=== PATIENT | female | born 1975 | race Hispanic/Latino ===

== ENCOUNTER 2020-07-06 12:38 | Emergency (ER) | payer OTHER ==
[~2020-07-06] VITALS: Ht 167.6 cm; Wt 95.3 kg
[~2020-07-06 12:38] MED LIST: APRI PO; ATENOLOL50 MG PO; LISINOPRIL10 MG PO; NAPROXEN250 MG PO; VALTREX500 MG PO
--- NOTE | 2020-07-06 13:20 | Emergency Department Note ---
History of Present Illnes History of Present Illness Chief Complaint: Respiratory History of Present Illness This is a 45 year old female arrives to the ED with complaints of shor tness of breath and heavy menstrual bleeding. Patient states she is on Xarelto for numerous PEs.. Chief Complaint Comment Patient in from home via EMS as advised by her home health nurse for shortness of breath, lightheadedness and dizziness, as well as heavy menstrual cycle bleeding. Patient is breathing well in triage with oxygen saturations of 98% on 3L. Patient was recently disccharged from the hospital after spending 33 days there for covid 19 and 3 pulmonary embolisms. Patient has been on xarelto for treatment of the PEs. 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 Any updates have been documented here. Past Medical History Recent Fever: No Clinical Suspicion of Infectio: No New/Unexplained Change in Ment: No Other Medical History: covid 19 PEs x 3 in right lower lung Other Surgery: Cyst removed from forehead Right knee Scope Social History Smoking Cessation: Never Smoker Alcohol Use: Social Physically hurt or threatened: No Review of Systems Review of Systems Constitutional: Reports no symptoms EENTM: Reports no symptoms Cardiovascular: Reports no symptoms Respiratory: Reports as per HPI Gastrointestinal: Reports no symptoms Genitourinary: Reports no symptoms Musculoskeletal: Reports no symptoms Integumentary: Reports no symptoms Neurological: Reports no symptoms Psychological: Reports no symptoms Endocrine: Reports no symptoms Hematological/Lymphatic: Reports no symptoms Physical Exam Related Data Allergies: Coded Allergies: No Known Allergies (Unverified , 03/20/17) Triage Vital Signs Vital Signs Date Time Temp Pulse Resp B/P (MAP) Pulse Ox O2 Delivery O2 Flow Rate FiO2 07/06/20 12:48 98.7 119 26 104/67 92 Nasal Cannula 3.0 Physical Exam CONSTITUTIONAL Constitutional: Present well-developed, Present well-nourished, Present ill appearing HENT HENT: Present normocephalic, Present atraumatic, Present oropharynx clear/moist, Present nose normal HENT L/R: Present left ext ear normal, Present right ext ear normal EYES Eyes: Reports PERRL, Reports conjunctivae normal NECK Neck: Present ROM normal PULMONARY Pulmonary: Present effort normal, Present respiratory distress CARDIOVASCULAR Cardiovascular: Present regular rhythm, Present heart sounds normal, Present capillary refill normal, Present normal rate GASTROINTESTINAL Abdominal: Present soft, Present nontender, Present bowel sounds normal GENITOURINARY Genitourinary: Present exam deferred SKIN Skin: Present warm, Present dry MUSCULOSKELETAL Musculoskeletal: Present ROM normal NEUROLOGICAL Neurological: Present alert, Present oriented x 3, Present no gross motor or sensory deficits PSYCHOLOGICAL Psychological: Present mood/affect normal, Present judgement normal Results Laboratory Lab results reviewed: Yes Imaging Imaging results reviewed: Yes Assessment & Plan Medical Decision Making MDM 45-year-old female arrived to the ED with complaints of vaginal bleeding. Patient is on several total for multiple pulmonary emboli- Patient with active bleeding, required IV estrogen and COMM[employer]CIAL [employer]ER consult. Patient transferred to [facility] for high level of care. Assessment & Plan Final Impression: (1) Dysfunctional uterine bleeding Depart Disposition: TRANS TO OTHER [facility] Last Vital Signs Date Time Temp Pulse Resp B/P (MAP) Pulse Ox O2 Delivery O2 Flow Rate FiO2 07/06/20 12:48 98.7 119 26 104/67 92 Nasal Cannula 3.0 Home Meds Reported Medications Furosemide (LASIX) 20 Mg Tablet, 20 MG PO DAILY, #30 TAB 07/06/20 Loratadine (CLARITIN) 10 Mg Tablet 07/06/20 Desogestrel-Ethinyl Estradiol (APRI) 1 Each Tablet 07/06/20 Rivaroxaban (XARELTO) 20 Mg Tablet 07/06/20 Benzonatate (TESSALON PERLE) 100 Mg Capsule 07/06/20 Valacyclovir Hcl (VALTREX) 500 Mg Tab, 1000 MG PO BID, TAB 03/20/17 Naproxen (NAPROXEN) 250 Mg Tablet, 500 MG PO BID, TAB 03/20/17 Lisinopril (LISINOPRIL) 10 Mg Tablet, 10 MG PO DAILY, #30 TAB 03/20/17 Atenolol (ATENOLOL) 50 Mg Tablet, 100 MG PO DAILY 03/20/17 [Apri] No Conflict Check, 0.15 MG PO DAILY for CONTROL 03/20/17 TIMBO ANN, DO Jul 06, 2020 13:19
[2020-07-06 13:28] LABS: BASOPHILS # (AUTO) 0.1 (0.0-0.1); BASOPHILS % 0.9 % (0.0-1.0); EOSINOPHILS # (AUTO) 1.1 (0.0-0.4); EOSINOPHILS % 6.8 % (0.0-6.0); HEMATOCRIT 24.9 % (34.2-44.1); HEMOGLOBIN 7.5 g/dL (12.0-16.0); LYMPHOCYTES # (AUTO) 3.2 (1.0-3.2); LYMPHOCYTES % 19.7 % (18.0-39.1); MEAN CORPUSCULAR HEMOGLOBIN 26.7 pg (28-32); MEAN CORPUSCULAR HGB CONC 30.1 g/dL (31-35); MEAN CORPUSCULAR VOLUME 88.6 fL (81-99); MONOCYTES # (AUTO) 0.6 (0.2-0.8); NEUTROPHILS # (AUTO) 10.9 (2.1-6.9); NEUTROPHILS % 67.7 % (38.7-80.0); PLATELET COUNT 464 x10e3/uL (140-360); RED BLOOD COUNT 2.81 x10e6/uL (3.6-5.1); RED CELL DISTRIBUTION WIDTH 15.4 % (11.7-14.4)
--- NOTE | 2020-07-06 13:30 | Diagnostic Imaging Report ---
EXAM: CHEST SINGLE (PORTABLE) DATE: 07/06/2020 12:59 PM INDICATION: Shortness of breath COMPARISON: None FINDINGS: The trachea is midline. There are patchy airspace opacities present throughout the entirety of the left lung and within the right mid and lower lung zones. There is no evidence for pneumothorax or significant volume pleural effusion. The cardiomediastinal silhouette is within normal limits. No acute osseous abnormalities identified. IMPRESSION: Left greater than right-sided patchy airspace opacities identified suggestive of a multifocal/viral infectious process. Signed by: Dr. Narendra Sargent MD on 07/06/2020 1:27 PM
[2020-07-06 13:48] LABS: ALANINE AMINOTRANSFERASE 24 IU/L (0-55); ALBUMIN 3.1 g/dL (3.5-5.0); ALBUMIN/GLOBULIN RATIO 0.8 (0.8-2.0); ALKALINE PHOSPHATASE 63 IU/L (40-150); ANION GAP 14.5 mmol/L (8-16); BLOOD UREA NITROGEN 21 mg/dL (7-26); BUN/CREATININE RATIO 22 (6-25); CALCIUM 9.5 mg/dL (8.4-10.2); CARBON DIOXIDE 24 mmol/L (22-29); CHLORIDE 106 mmol/L (98-107); CREATINE KINASE 17 IU/L (29-168); CREATININE, SERUM 0.94 mg/dL (0.57-1.11); EST GLOMERULAR FILTRATION RATE > 60 ML/MIN (60-); GLUCOSE 99 mg/dL (74-118); POTASSIUM 3.5 mmol/L (3.5-5.1); SODIUM 141 mmol/L (136-145)
--- OUTSIDE RECORDS SUMMARY | 2020-07-06 14:16 | XMS REPORT | Encounter Summary ---
Author Organization Unknown Address [address] [place] [id number] Phone [phone] Care Team Providers Care Research Neuropsychologist Name Role Phone Dr. Adriano Reich 3 [phone] Stewart Santos MD 2 [phone] Mdaan Lamb MD 110 [phone] Reason for Visit Essential hypertension Instructions 1. Essential hypertension atenolol 100 mg-chlorthalidone 25 mg t ablet lisinopril 10 mg tablet CMP, serum or plasma lipid panel, serum 2. Hypokalemia 3. Immunization Adacel (Tdap Adolesn/Adult)(PF)2 Lf-(2 .5-5-3-5)-5 Lf/0.5 mL IM syringe 4. Body mass index 30+ - obesity body mass index: care instructions learning about healthy weight Discussion Note: None recorded. Plan of Care Reminders Provider Appointments Est Patient 03/08/2019 8:30AM Adriano Ocampo MD Lab CMP, Serum or Plasma 12/14/2018 [facility] Laboratory Lipid Panel, Serum 12/14/2018 [facility] Laboratory Referral None recorded. Procedures None recorded. Surgeries None recorded. Imaging None recorded. Medications Name Start Date Apri 0.15 mg-0.03 mg tablet Take 1 tablet every day by oral route as directed for 28 days. atenolol 100 mg-chlorthalidone 25 mg tab let TAKE ONE (1) TABLET(S) BY MOUTH ONCE A DAY. lisinopril 10 mg tablet TAKE ONE (1) TABLET(S) BY MOUTH DAILY. valacyclovir 500 mg tablet Take 1 tablet twice a day by oral route as needed. Medications Administered None recorded. Vitals Height Weight BMI Blood Pressure 5 ft 6 in 218 lbs 35.2 kg/m2 130/84 mm[Hg] Lab Results None recorded. Allergies Code Code System Name Reaction Severity Status Onset NKDA Problems Name Status Onset Date Source Essential Hypertension Active Procedures Date Name Performed by 11/23/1990 Orthopedic Surgery Information not avai lable 11/23/1989 Knee Surgery Information not avai lable Vaccine List Vaccine Type Tdap 0.5 mL Social History Smoking Status Never Smoker Past Encounters 12/14/2018 Essential Hypertension; Hypokalemia; Immunization; Body Mass Index 30+ - Obesity Adriano Ocampo MD: [id number] [place] [address], Ph. History of Present Illness Note:F/u on htn and hypokalemia. Pt d/c KCL 20 meq because she was having persistent leg cramps. Compliant with diet and exercise. No side effects with meds. BPs at home 120s/60s-80s. No new concerns. Review of Systems Comprehensive General Adult ROS Reported By: Patient Constitutional: Constitutional: no fever Eyes: Eyes: no vision change ENMT: Ears: no ear pain. Nose: no sinus problems. Mouth/Throat: no sore throat Cardiovascular: Cardiovascular: no chest thaddeus n, no palpitations, no lightheadedness Respiratory: Respiratory: no cough, no wh eezing, no shortness of breath Gastrointestinal: Gastrointestinal: no abdomin al pain, no nausea, no vomiting, no constipation, no diarrhea Musculoskeletal: Musculoskeletal: no muscle a ches, no back pain, no swelling in the extremities Integumentary: Skin: no rashes Neurologic: Neurologic: no loss of consc iousness, no headaches Psychiatric: Psych: no depression, no alc ohol abuse, no anxiety, no suicidal thoughts Endocrine: Endocrine: no fatigue Physical Exam General Adult Exam (male) Reported By: Patient Constitutional: General Appearance: healthy- appearing, obese. Level of Distress: NAD. Ambulation: ambulating normally Psychiatric: Insight: good judgement. Men jose Status: active and alert, normal mood, normal affect. Orientation: to time, to place, to person. Memory: recent memory normal, remote memory normal Eyes: Lids and Conjunctivae: non-i njected, no discharge ENMT: Lips, Teeth, and Gums: no mo uth or lip ulcers. Oropharynx: moist mucous membranes Neck: Neck: supple, trachea midlin e. Thyroid: no enlargement, non-tender Lungs: Auscultation: breath sounds normal Cardiovascular: Heart Auscultation: RRR, nor mal S1, normal S2, no murmurs. Neck vessels: no carotid bruits. Pulses including femoral / pedal: normal throughout Musculoskeletal:: Motor Strength and Tone: nor mal, normal tone. Joints, Bones, and Muscles: normal movement of all extremities. Extremities: edema, varicosities Neurologic: Gait and Station: normal gai t Skin: Inspection and palpation: no rash, no lesions
--- OUTSIDE RECORDS SUMMARY | 2020-07-06 14:16 | XMS REPORT | Continuity of Care Document ---
Author Author [facility] t Organization [facility] Address 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 Name Role Phone Asked, Pcp No PCP Unavailable Ludwig ANN Attphys Unavailable Zainab LOCKE, Alvin Hager Attphys Payers Payer Name Policy Type Policy Number Effective Date Expiration Date S lizzy AETNAAETNA PPO OPEN [id number] xxxxxxxxxx 2011 00:00:00 [place] [facility] Problems Condition Name Condition Details Condition Category Status Onset Date Resolution Date Last Treatment Date Treating Clinician Comments Source Anemia Anemia Problem Active 2020-07-04 00:00:00 [facility] Pulmonary embolism Pulmonary Embolism Problem Active 2020-07-04 00:00:0 0 [facility] Pneumonia Pneumonia Problem Active 2020-07-04 00:00:00 [facility] Disease caused by 2019 novel coronavirus Disease Cause d by 2019 Novel Coronavirus Problem Active 2020-07-04 00:00:00 [facility] Herpes labialis Herpes Labialis Problem Active 2019-12-07 00:00:00 [facility] Obesity Obesity Problem Active 2019-12-07 00:00:00 [facility] Prediabetes Prediabetes Problem Active 2019-12-07 00:00:00 [facility] Essential hypertension Essential Hypertension Problem Active [facility] Allergies, Adverse Reactions, Alerts This patient has no known allergies or adverse reactions. Family History Family Member Diagnosis Comments Start Date Stop Date Source Natural father Hyperlipidemia [place] [facility] Natural father Hypertension [place] [facility] Maternal grandmother Stomach cancer [place] [facility] Natural mother Cataracts [facility] Paternal grandmother Cancer [place] [facility] Social History Social Habit Start Date Stop Date Quantity Comments Source History SDOH Alcohol Std Drinks [place] [facility] History SDOH Alcohol Binge Aston Maxwell Sex Assigned At [facility] Alcohol intake 2019-12-06 00:00:00 2019-12-06 00:00:00 Lifetime non-drinker (finding) Aston Maxwell History SDOH Alcohol Frequency 2019-12-06 00:00:00 2019-12-06 00:00:0 0 1 Aston Maxwell Smoking Status Start Date Stop Date Source Never smoker Aston zapata Medications Ordered Medication Name Filled Medication Name Start Date Stop Da te Current Medication? Ordering Clinician Indication Dosage Frequency Signature (SIG) Comments Components Source ACYCLOVIR ORAL 2019-12-06 09:20:45 Yes 500 mg Take 500 mg by mouth as needed. Aston Maxwell APRI 0.15-0.03 mg per tablet 2019-12-06 00:00:00 Yes 1{tbl} QD Take 1 tablet by mouth daily. Aston Maxwell APRI 0.15-0.03 mg per tablet 2019-10-17 00:00:00 2019-12-06 00:0 0:00 No 1{tbl} QD Take 1 tablet by mouth daily. Aston Maxwell atenolol-chlorthalidone (TENORETIC) 100-25 mg per tablet 2019-10-04 00:00:00 Yes 1{tbl} QD Take 1 tablet by mouth daily. Aston Maxwell lisinopril (PRINIVIL) 10 mg tablet 2019-10-04 00:00:00 Yes 10mg QD Take 10 mg by mouth daily. Aston Maxwell Apri 0.15 mg-0.03 mg tablet Take 1 table t every day by oral route as directed for 28 days. Apri 0.15 mg-0.03 mg tablet Take 1 table t every day by oral route as directed for 28 days. No Apri 0.15 mg-0.03 mg tablet Take 1 tablet every day by oral route as directed for 28 days. [facility] atenolol 100 mg-chlorthalidone 25 mg tab let Take 1 tablet every day by oral route for 90 days. atenolol 100 mg-chlorthalidone 25 mg tab let Take 1 tablet every day by oral route for 90 days. No 1 Q1D atenolol 100 mg- chlorthalidone 25 mg tablet Take 1 tablet every day by oral route for 90 days. [facility] benzonatate 100 mg capsule Take 1 capsule twice a day by oral route for 8 days. benzonatate 100 mg capsule Take 1 capsule twice a day by oral route for 8 days. No 1capsule(s) BID benzonat ate 100 mg capsule Take 1 capsule twice a day by oral route for 8 days. [facility] Claritin 10 mg tablet Take 1 tablet every day by oral route. Claritin 10 mg tablet Take 1 tablet every day by oral route. No 1 Q1D Claritin 10 mg tablet Take 1 tablet every day by oral route. [facility] fluticasone propionate 50 mcg/actuation nasal spray,suspension [place] 1 spray twice a day by intranasal route as directed for 14 days. nasla congestion. fluticasone propionate 50 mcg/actuation nasal spray,suspension [place] 1 spray twice a day by intranasal route as directed for 14 days. nasla congestion. No 1spray(s) BID fluticasone pro pionate 50 mcg/actuation nasal spray,suspension [place] 1 spray twice a day by intranasal route as directed for 14 days. nasla congestion. [facility] furosemide 20 mg tablet Take 1 tablet every day by ora l route for 90 days. furosemide 20 mg tablet Take 1 tablet every day by oral route for 90 days. No 1 Q1D furosemide 20 m g tablet Take 1 tablet every day by oral route for 90 days. [facility] ice ipratropium 0.5 mg-albuterol 3 mg (2.5 m g base)/3 mL nebulization soln Inhale 3 mL 4 times a day by inhalation route for 5 days. ipratropium 0.5 mg-albuterol 3 mg (2.5 mg base)/3 mL nebulization soln Inhale 3 mL 4 times a day by inhalation route for 5 days. No 3mL QID ipratr opium 0.5 mg-albuterol 3 mg (2.5 mg base)/3 mL nebulization soln Inhale 3 mL 4 times a day by inhalation [facility] mg [facility] Take 1 tablet every day by ora l route for 90 days. lisinopril 10 mg tablet Take 1 tablet every day by oral route for 90 days. No 1 Q1D lisinopril 10 m g tablet Take 1 tablet every day by oral route for 90 days. [facility] ice Mucinex 600 mg tablet, extended release Take 1 tablet every 12 hours by oral route. Mucinex 600 mg tablet, extended release Take 1 tablet every 12 hours by oral route. No 1 Q12H Mucinex 600 mg tablet, extended release Take 1 tablet every 12 hours by oral route. [facility] scopolamine 1 mg over 3 days transdermal patch Apply 1 patch every 72 hours by transderm. route for 3 days. scopolamine 1 mg over 3 days transdermal patch Apply 1 patch every 72 hours by transderm. route for 3 days. No 1patch(es) scopolamine 1 mg over 3 days transdermal patch Apply 1 patch every 72 hours by transderm. route for 3 days. [facility] valacyclovir 500 mg tablet TAKE ONE (1) TABLET(S) BY MOUTH TWICE A DAY NEEDED. valacyclovir 500 mg tablet TAKE ONE (1) TABLET(S) BY MOUTH TWICE A DAY NEEDED. No valacyclovir 500 mg tablet TAKE ONE (1) TABLET(S) BY MOUTH TWICE A DAY NEEDED. [facility] Xarelto 20 mg tablet Take 1 tablet every day by oral r oute for 30 days. Xarelto 20 mg tablet Take 1 tablet every day by oral route for 30 days. No 1 Q1D Xarelto 20 mg tablet Take 1 tablet every day by oral route for 3 0 days. [facility] Immunizations Ordered Immunization Name Filled Immunization Name Date Status Comments Source Tdap Tdap Unknown Completed [facility] Vital Signs Vital Name Observation Time Observation Value Comments Source Height 2020-07-04 00:00:00 65 [in_i] [facility] BP Diastolic 2019-12-07 00:00:00 76 mm[Hg] [facility] Height 2019-12-07 00:00:00 65 [in_i] [facility] BMI (Body Mass Index) 2019-12-07 00:00:00 34.9 kg/m2 [facility] BP Systolic 2019-12-07 00:00:00 124 mm[Hg] [facility] Body Weight 2019-12-07 00:00:00 209.6 [lb_av] [facility] BP Diastolic 2019-03-23 00:00:00 76 mm[Hg] [facility] Height 2019-03-23 00:00:00 65 [in_i] [facility] BMI (Body Mass Index) 2019-03-23 00:00:00 35.6 kg/m2 [facility] BP Systolic 2019-03-23 00:00:00 104 mm[Hg] [facility] Body Weight 2019-03-23 00:00:00 214 [lb_av] [facility] BP Diastolic 2018-12-14 00:00:00 84 mm[Hg] [facility] Height 2018-12-14 00:00:00 66 [in_i] [facility] BMI (Body Mass Index) 2018-12-14 00:00:00 35.2 kg/m2 [facility] BP Systolic 2018-12-14 00:00:00 130 mm[Hg] [facility] Body Weight 2018-12-14 00:00:00 218 [lb_av] [facility] Systolic blood pressure 2019-12-06 09:04:00 114 mm[Hg] [facility] Diastolic blood pressure 2019-12-06 09:04:00 64 mm[Hg] [facility] Heart rate 2019-12-06 09:04:00 80 /min [facility] Body height 2019-12-06 09:04:00 167.6 cm [facility] Body weight 2019-12-06 09:04:00 93.895 kg [facility] BMI 2019-12-06 09:04:00 33.41 kg/m2 [place] [facility] Procedures Procedure Date / Time Performed Performing Clinician Sour e THINPREP TIS PAP REFLEX HPV MRNA E6/E7 2019-12-09 14:47:00 Madan Wiggins THINPREP TIS PAP REFLEX HPV MRNA E6/E7 2019-12-06 00:00:00 Madan Wiggins Orthopedic Surgery 1990-11-23 00:00:00 [facility] Knee Surgery 1989-11-23 00:00:00 [facility] Plan of Care Planned Activity Planned Date Details Comments Source Future Scheduled Test 2022-12-09 00:00:00 Screening for porter gnant neoplasm of cervix (procedure) [code = 415714107] Aston zapata Future Scheduled Test 2020-07-24 00:00:00 INFLUENZA VACCINE [code = INFLUENZA VACCINE] Aston Maxwell Future Appointment 2020-07-18 00:00:00 Emma Knight, [address]; [address], [place] [address] [facility] musa Instructions [facility] Encounters Start Date/Time End Date/Time Encounter Type Admission Type [facility] Care Department Encounter ID Source 2020-07-04 00:00:00 2020-07-04 00:00:00 Emma Knight CLEAT FEEDER : [address] [facility], [address], [place] [address], Ph. [facility] [id number] [facility] 2019-12-07 00:00:00 2019-12-07 00:00:00 Emma Knight, CLEAT FEEDER : [address] [place] [address], Ph. [facility] [id number] [facility] 2019-03-23 00:00:00 2019-03-23 00:00:00 Amadeo duran MD: [address] [place] [address], [place]. [facility] [id number] [facility] 2018-12-14 00:00:00 2018-12-14 00:00:00 Adriano sarmiento MD: [address] [place] [address], [place]. [facility] [id number] [facility] Results Test Description Test Time Test Comments Results Result Comments Source CHEST SINGLE (PORTABLE) 2020-07-06 13:25:00 [facility] [address] [place] [address] Patient Name: YARELY QUEEN MR #: [id number] : 1975 Age/Sex: 45/F Req #: [id number] Adm Physician: Ordered by: TIMBO ANN DO Report #: [id number] Location: ER Room/Bed: Procedure: [id number] DX/CHEST SINGLE (PORTABLE) Exam Date: Exam Time: REPORT STATUS: Signed EXAM: CHEST SINGLE (PORTABLE) DATE: 07/06/2020 12:59 PM INDICATION: Shortness of breath COMPARISON: None FINDINGS: The trachea is midline. There are patchy airspace opacities present throughout the entirety of the left lung and within the rig ht mid and lower lung zones. There is no evidence for pneumothorax or significant volume pleural effusion. The cardiomediastinal silhouette is within normal limits. No acute osseous abnormalities identified. IMPRESSION: Left greater than right-sided patchy airspace opacities identified suggestive of a multifocal/viral infectious process. Signed by: Dr. Narendra Sargent MD on 07/06/2020 1:27 PM Dictated By: NARENDRA SARGENT MD 1327 Transcribed By: EMILY on 07/06/20 1327 COPY TO: TIMBO ANN DO SCR MAMM BILATERAL AISHA CAD DIGITAL 2019-12-17 10:31:57 - SCR MAMM BILATERAL AISHA CAD DIGITALBILATERAL DIGITAL SCREENING MAMMOGRAM 3D/2D WITH CAD: 12/15/2019CLINICAL: Asymptomatic. Digital breast tomosynthesis was performed in addition to routine CC and MLO views. Current mammographic images were evaluated by either a Bulb M-Vu or a [facility] ImageChecker CAD (computer aided detection system). Comparison is made to exams dated 12/03/2018 mammogram, 12/02 mammogram, and 11/06/2016 mammogram - [facility]. There are scattered fibroglandular tissues in both breasts. No suspicious mass, architectural distortion, malignant type calcification, or lymph node abnormality detected. Breast architecture is stable compared to prior exams.IMPRESSION: NEGATIVEThere is no mammographic evidence of malignancy. Resume annual screening mammography in one year. Shanae diaz/sangeeta:12/17/2019 10:31:57 Tankage Grinder: Deanna KAISER, [facility] sent: BIRADS 1-2 Normal Mammogram BI-RADS: 1 Negative THINPREP TIS PAP REFLEX HPV mRNA E6/E7 2019-12-09 14:47:00 Test Item Clinical information (test code = 45170-8) None given Date of last menstrual period (test code = 8665-2) NONE GIVEN Prev. pap: (test code = 81611-2) NONE GIVEN Prev. bx: (test code = 87151-3) NONE GIVEN Source (test code = 70042-1) None given Statement of adequacy (test code = 61642-7) Satisfactory for evaluation.Endocervical/transformation zone componentpresent.Age and/or menstrual status not provided Interpretation/result: (test code = 72486-1) Negative for intraepithelial lesion or malignancy. Comment (test code = 59078-3) This Pap test has been evaluated with computerassisted technology. Cigar Tobacco Rehandler (test code = 65283-7) KXJ, CT(ASCP)CT screening location: [address], [place] [address] Comment (test code = 8234094) EXPLANATORY NOTE: The Pap is a screening test for cervical cancer. It is not a diagnostic test and is subject to false negative and false positive results. It is most reliable when a satisfactory sa mple, regularly obtained, is submitted with relevant clinical findings and history, and when the Pap result is evaluated along with historic and current clinical information. NO COLLECTION DATE RECEIVED. WE HAVE USEDTHE DATE THE SPECIMEN WAS RECEIVED BY THISLABORATORY THE COLLECTION DATE. IF THISIS INCORRECT, PLEASE CONTACT CLIENT SERVICES.PHONE NUMBER: [phone] SYLVIE (test code = SYLVIE) FASTING: UNKNOWN RAC (test code = RAC) Performing Organization Info rmation: Site ID: [id number] Name: [facility] Address: [address] [place] [address] Director: Juan Leigh MAMM BILATERAL AISHA CAD [id number] 11:18:06 - SCR MAMM BILATERAL AISHA CAD DIGITALBILATERAL DIGITAL SCREENING MAMMOGRAM 3D/2D WITH CAD: 12/03/2018CLINICAL: Asymptomatic. Digital breast tomosynthesis was p erformed in addition to routine CC and MLO views. Current mammographic images w ere evaluated by either a Bulb M-Vu or a [facility] ImageChecker CAD (computer ai ded detection system). Comparison is made to exams dated 12/02/2017 mammogram, 11/06/2016 mammogram, 06/25/2015 mammogram, 12/22/2014 mammogram, 11/01/2014 mammog betsy, and 12/22/2014 ultrasound - [facility]. There are scattered fibroglandular tissues in both breasts. On the left CC view at posterior depth, there is redemonstration of a benign lymph node which had been previously eval uated on 12/22/2014. No suspicious mass, architectural distortion, malignant typ e calcification, or lymph node abnormality detected. Breast architecture is sta ble compared to prior exams.IMPRESSION: BENIGNThere is no mammographic evidence of malignancy. Resume annual screening mammography in one year. Shanae Phoenix D.O. al/:12/07/2018 11:18:06 Tankage Grinder: Randi Zapata(Fiona), [facility] sent: BIRADS 1-2 Normal Mammogram BI-RAD S: 2 Benign
--- OUTSIDE RECORDS SUMMARY | 2020-07-06 14:16 | XMS REPORT | Encounter Summary ---
Author Organization Unknown Address [address] [place] [address] Phone [phone] Care Team Providers Care Protocol Officer Name Role Phone Emma White 3 [phone] Stewart Santos MD 2 [phone] Madan Lamb MD 110 [phone] Reason for Visit TELE-hospital follow up - TCM (DOMITILA) Instructions 1. Essential hypertension lisinopril 10 mg tablet atenolol 100 mg-chlorthalidone 25 mg t ablet furosemide 20 mg tablet 2. Congestion of nasal sinus fluticasone propionate 50 mcg/actuatio n nasal spray,suspension Claritin 10 mg tablet 3. Anemia hematology referral 4. Pneumonia house worker referral 5. Disease caused by 2019 novel coronavi christian 6. Abnormal vaginal bleeding 7. Pulmonary embolism Discussion Note: None recorded. Patient educational handouts: No information available. Plan of Care Patient Instructions Thank you for scheduling your post hospi jose visit. Please let us know if you need help in scheduling follow up tests or specialist visits. Knowing what medicines to keep taking and which to ones to stop after a hospital stay can be confusing. Contact your physicians with your questions about what medications you should be taking. Our [facility] can also help you in this area. Contact them at . [facility] can help you choose the best Home Health agency. We can also help you with mental health social worker and community resources. Call us we are here to help. If you experience any new or concerning symptoms, call us immediately at . Evening and Thursday clinic hours are now available. If you have problems after hours, you can reach the [facility] doctor toy consultant at . Please follow up with your doctor in two weeks. Reminders Provider Appointments Return to Office on or around 07/18/2020 Beth Knight NP Lab None recorded. Referral Hematology Referral 07/04/2020 Pulp Operator Referral 07/04/2020 Cuba Valdez MD Procedures None recorded. Surgeries None recorded. Imaging None recorded. Medications Name Start Date Apri 0.15 mg-0.03 mg tablet Take 1 tablet every day by oral route as directed for 28 days. atenolol 100 mg-chlorthalidone 25 mg tab let Take 1 tablet every day by oral route for 90 days. benzonatate 100 mg capsule Take 1 capsule twice a day by oral route for 8 days. Claritin 10 mg tablet Take 1 tablet every day by oral route. fluticasone propionate 50 mcg/actuation nasal spray,suspension [place] 1 spray twice a day by intranasal route as directed for 14 days. nasla congestion. furosemide 20 mg tablet Take 1 tablet every day by oral route for 90 days. ipratropium 0.5 mg-albuterol 3 mg (2.5 m g base)/3 mL nebulization soln Inhale 3 mL 4 times a day by inhalation route for 5 days. lisinopril 10 mg tablet Take 1 tablet every day by oral route for 90 days. Mucinex 600 mg tablet, extended release Take 1 tablet every 12 hours by oral route. scopolamine 1 mg over 3 days transdermal patch Apply 1 patch every 72 hours by transderm. route for 3 days. valacyclovir 500 mg tablet TAKE ONE (1) TABLET(S) BY MOUTH TWICE A DAY NEEDED. Xarelto 20 mg tablet Take 1 tablet every day by oral route for 30 days. Medications Administered None recorded. Vitals Height 5 ft 5 in Results Lab Results None recorded. Allergies Code Code System Name Reaction Severity Status Onset NKDA Problems Name Status Onset Date Source Herpes Labialis Active 12/07/2019 Obesity Active 12/07/2019 Prediabetes Active 12/07/2019 Anemia Active 07/04/2020 Pulmonary Embolism Active 07/04/2020 Pneumonia Active 07/04/2020 Disease Caused by 2019 Novel Coronavirus Active 020 Essential Hypertension Active Procedures Date Name Performed by 11/23/1990 Orthopedic Surgery Information not avai lable 11/23/1989 Knee Surgery Information not av lab Vaccine List Vaccine Type Tdap 0.5 mL Social History Tobacco Smoking Status Never Smoker Past Encounters 07/04/2020 Essential Hypertension; Congestion of Nasal Sinus; Anemia; Pneumonia; Disease Caused by 2019 Novel Coronavirus; Abnormal Vaginal Bleeding; Pulmonary Embolism Emma Knight NP: [address] [facility], [address], [place] [address], Ph. History of Present Illness Hospital Follow Up ( [facility] ) Reported By: Patient HPI: Timing: Please describe what events led up to this hospitalization:. Discharge Information: See Assessment and Plan for additional information. ; Admission: 05/30/2020 Discharge: 07/02/2020 Facility: [facility], DX: COVID 19 STREPTOCOCCAL INFECTION. Functional Status: See Assessment and Plan for additional information. ; Has home nurse at home during this visit and plans to come weeklyhas OT/PThas diminished lung sounds at bases.On tessalon for coughOn xarelto 20 mg dailyHas duoneb tidlasix 20 mg daily Notes: vitals via home nurse visit: 136/90 mmhg, pulse: 96 /min, T: 97.9 F. + 1 edema <div>Has dyspnea with exertion more so in the morning.</div><div>on 3 l NC continuous and has noticed spo2 ranging from 95-97% at rest and with activites noticed to be 81%-83%, which improves with rest. </div><div>denies fever. </div><div>has decreased appetite </div><div>Lives with and 2 kids( 8 yr and 13 yr old). </div><div>Has walker with seat post hospital discharge. </div> Note:I confirm that I received verbal consent from the patient for the virtual visit.
This telemedicine encounter was performed using live {{video and audio*|audio only because either patient did not have technology or unable to connect due to technical problems}}
Review of Systems Comprehensive Adult Problem ROS Reported By: Patient Constitutional: Constitutional: no significa nt weight change, loss of appetite, fatigue Eyes: Eyes: ; denies vision distur bances Cardiovascular: Cardiovascular: no chest thaddeus n, normal heart rate; mild pedal edema Respiratory: Respiratory: no wheezing, no chest tightness, cough, difficulty breathing Gastrointestinal: GI: no abdominal pain, no vo miting, no diarrhea, no constipation Musculoskeletal: Musculoskeletal: no soft tis priscilla swelling, no joint swelling Skin: Skin: no rash Neurological symptoms: Neuro: no numbness, no tingl ing, no headache, no dizziness Psychiatric: Psych: no depression, no anx iety Physical Exam Telemedicine/Virtual Visit Reported By: Patient Constitutional: General Appearance: healthy- appearing, well-nourished, well- developed. Level of Distress: NAD Psychiatric: Insight: good judgement. Men jose Status: active and alert, normal mood, normal affect. Orientation: to time, to place, to person Lungs: Respiratory effort: no dyspn ea; on 3 lnc"
--- OUTSIDE RECORDS SUMMARY | 2020-07-06 14:16 | XMS REPORT | Clinical Summary ---
Author Author [facility] Organization [facility] Address Unknown Phone Unavailable Care Team Providers Care Doweling Machine Operator Name Role Phone Asked, No Pcp PCP Unavailable Allergies No Known Allergies Medications End Date Status Medication Sig Dispensed Refills Start Date Active atenolol-chlorthalidone Take 1 tablet 0 (TENORETIC) 100-25 mg per by mouth 9 tablet daily. Active lisinopril (PRINIVIL) 10 Take 10 mg by 0 10/04 mg tablet mouth daily. 9 Active ACYCLOVIR ORAL Take 500 mg 0 by mouth as needed. Active APRI 0.15-0.03 mg per Take 1 tablet 28 tablet 13 tablet by mouth 0 daily. 12/06/2019 Discontinued (Reorder) APRI 0.15-0.03 mg per Take 1 tablet 0 10/17/20 1 tablet by mouth 9 daily. Active Problems No known active problems Encounters Care Team Description Date Type Specialty Madan Lamb MD 12/24/2019 Orders Only Obstetrics and Gyne cology Madan Lamb MD 12/20/2019 Telephone Obstetrics and Gyne cology Madan Lamb MD Women's annual routine gynecological exa mination (Primary Dx) 12/06/2019 Office Visit Obstetrics and Gyne cology Madan Lamb MD 12/06/2019 Orders Only Obstetrics and Gyne cology after 07/06/2019 Family History Medical History Relation Name Comments Hyperlipidemia Father Hypertension Father Stomach cancer Maternal Grandmother Cataracts Mother Cancer Paternal Grandmother Relation Name Status Comments Father Maternal Grandmother Mother Paternal Grandmother Social History Date Tobacco Use Types Packs/Day Years Used Never Smoker Smokeless Tobacco: Never Used Drinks/Week oz/Week Comments Alcohol Use Never Alcohol Habits Answer Date Recorded How often do you have a drink containing alcohol? Never 12/06/2019 How many drinks containing alcohol do you have on No t asked a typical day when you are drinking? How often do you have six or more drinks on one Not asked occasion? Sex Assigned at Date Recorded Not on file Industry Job Start Date Occupation Not on file Not on file Not on file Travel End Travel History Travel Start No recent travel history available. Last Filed Vital Signs Reading Time Taken Comments Vital Sign 114/64 12/06/2019 9:04 AM SLATE TRIMMER Blood Pressure 80 12/06/2019 9:04 AM SLATE TRIMMER Pulse - - Temperature - - Respiratory Rate - - Oxygen Saturation - - Inhaled Oxygen Concentration 93.9 kg (207 lb) 12/06/2019 9:04 AM SLATE TRIMMER Weight 167.6 cm (5' 6") 12/06/2019 9:04 AM SLATE TRIMMER Height 33.41 12/06/2019 9:04 AM SLATE TRIMMER Body Mass Index Plan of Treatment Health Maintenance Due Date Last Done Comments INFLUENZA VACCINE 07/24/2020 CERVICAL CANCER SCREENING 12/09/2022 12/09/2019, 12/06/2019 Procedures Comments Procedure Name Priority Date/Time Associated Diag nosis THINPREP TIS PAP REFLEX Routine 12/09/2019 HPV MRNA E6/E7 2:47 PM SLATE TRIMMER THINPREP TIS PAP REFLEX Routine 12/06/2019 HPV MRNA E6/E7 12:00 AM SLATE TRIMMER after 07/06/2019 Results * THINPREP TIS PAP REFLEX HPV mRNA E6/E7 (12/09/2019 2:47 PM SLATE TRIMMER) Only the most recent of 2 results within the time period is included. Clinical None given Language Learning Class information Perpetu HITTERDAL Date of last NONE GIVEN Language Learning Class menstrual DIAGNOSTICS period CLANCY Prev. pap: NONE GIVEN Language Learning Class DIAGNOSTICS HITTERDAL Prev. bx: NONE GIVEN Language Learning Class DIAGNOSTICS HITTERDAL Source None given Language Learning Class DIAGNOSTICS HITTERDAL Statement of Comment: [facility] adequacy Satisfactory for evaluation. DIAGNOST ICS Endocervical/transformation CLANCY zone component present. Age and/or menstrual status not provided Interpretation/ Comment: Negative for [facility] result: intraepithelial lesion or DIAGNOSTICS malignancy. HITTERDAL Comment Comment: [facility] This Pap test has been DIAGNOSTICS evaluated with computer Snackr technology. Cytotechnologis Comment: [facility] t KXJ, CT(ASCP) DIAGNOSTICS CT screening location: docplanner [place] [id number] [place], [facility] [id number] Comment Comment: [facility] EXPLANATORY NOTE: DIAGNOSTICS The Pap is a screening test HITTERDAL for cervical cancer. It is not a diagnostic test and is subject to false negative and false positive results. It is most reliable when a satisfactory sample, regularly obtained, is submitted with relevant clinical findings and history, and when the Pap result is evaluated along with historic and current clinical information. NO COLLECTION DATE RECEIVED. WE HAVE USED THE DATE THE SPECIMEN WAS RECEIVED BY THIS LABORATORY THE COLLECTION DATE. IF THIS IS INCORRECT, PLEASE CONTACT CLIENT SERVICES. PHONE NUMBER: [phone] Specimen Narrative Performed At FASTING: UNKNOWN [facility] Resulting Agency Comment Performing Organization Information: Site ID: [id number] Name: [facility] Address: [address] [place] [id number] Director: Juan Barfield Performing Organization Address City/State/Zipcode Ph one Number [employer] [address] [address] after 07/06/2019 Insurance Type Payer Benefit Subscriber ID Effective Phone Address Plan / Dates Group PPO AETNA AETNA PPO xxxxxxxxxx 2011-P OPEN resent CHOICE DR fernandez ([place]) [place] [address] Advance Directives For more information, please contact: [phone] Patient Sandwich Maker Explanation Type Date Recorded Advance Directives, Living Will and Medical Power of Certified Appliance Service Technician
--- OUTSIDE RECORDS SUMMARY | 2020-07-06 14:16 | XMS REPORT | Encounter Summary ---
Author Organization Unknown Address [address] [place] [address] Phone [phone] Care Team Providers Care Smart Energy Specialist Name Role Phone Dr. Adriano Reich 3 [phone] Stewart Santos MD 2 [phone] Madan Lamb MD 110 [phone] Reason for Visit Essential hypertension; Annual physical - female Instructions 1. Adult health examination CBC w/ auto diff CMP, serum or plasma lipid panel, serum TSH, serum or plasma urinalysis, dipstick 2. Essential hypertension atenolol 100 mg-chlorthalidone 25 mg t ablet lisinopril 10 mg tablet 3. Obesity learning about healthy weight 4. Herpes labialis valacyclovir 500 mg tablet 5. Prediabetes HbA1c (hemoglobin A1c), blood 6. Influenza vaccination declined 7. Varicose veins of lower extremity varicose veins: care instructions Discussion Note: None recorded. Plan of Care Reminders Provider Appointments Return to Office on or around 06/05/2020 Beth Knight NP Lab CBC W/ Auto Diff 12/07/2019 [facility] - Laboratory CMP, Serum or Plasma 12[facility]07[facility]2019 [facility] Lipid Panel, Serum 12/07/2019 [facility] - Laboratory TSH, Serum or Plasma 12/07/2019 [facility] Urinalysis, Dipstick 12/07/2019 [facility] [place] [facility] HbA1C (Hemoglobin a1C), Blood 12/07/2019 [facility] - Laboratory Referral None recorded. Procedures None recorded. Surgeries None recorded. Imaging None recorded. Medications Name Start Date Apri 0.15 mg-0.03 mg tablet Take 1 tablet every day by oral route as directed for 28 days. atenolol 100 mg-chlorthalidone 25 mg tab let TAKE ONE (1) TABLET(S) BY MOUTH ONCE A DAY. lisinopril 10 mg tablet TAKE ONE (1) TABLET(S) BY MOUTH DAILY valacyclovir 500 mg tablet Take 1 tablet twice a day by oral route as needed. Medications Administered None recorded. Vitals Height Weight BMI Blood Pressure 5 ft 5 in 209.6 lbs 34.9 kg/m2 124/76 mm[Hg] Results Lab Results Date Name Specimen Result Interpretation Description Value Range Status Address Urinalysis, Dipstick Color Glucose negative [facility]: [address], [place] Color Bilirubin negative [facility]: [address], [place] Color Ketones negative [facility]: [address], [place] Color Specific [place] 1.030 [facility]: [address], [place] Color Blood trace Bernadette [facility]: [address], [place] Color PH 5.5 [facility] [address] [place] Protein negative [facility]: [address], [place] Color Urobilinogen 0.2 [facility]: [address], [place] Color Nitrites negative [facility]: [address], [place] Color Leukocytes negative [facility]: [address], [place] Allergies Code Code System Name Reaction Severity Status Onset NKDA Problems Name Status Onset Date Source Herpes Labialis Active 12/07/2019 Obesity Active 12/07/2019 Prediabetes Active 12/07/2019 Essential Hypertension Active Procedures Date Name Performed by 11/23/1990 Orthopedic Surgery Information not avai lable 11/23/1989 Knee Surgery Information not avai lable Vaccine List Vaccine Type Tdap 0.5 mL Social History Tobacco Smoking Status Never Smoker Past Encounters 12/07/2019 Adult Health Examination; Essential Hypertension; Obesity; Herpes Labialis; Prediabetes; Influenza Vaccination Declined; Varicose Veins of Lower Extremity Emma Knight, [employer]: [address] [place] [address], Ph. History of Present Illness Note:Here for PE<div>
</div><div>1. HTN

- current med(s): atenolol/chlorthalidone
- medication compliance: daily
- home BP range: denies
- adverse reactions: no
- diet and exercise: no
- Denies HAs, CP, SOB, acute visual changes </div><div>- plans to schedule routine eye exam this month,</div><div>
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 </div><div>
</div><div>2. Herpes labialis: needs medication renewal, uses valtrex prn</div><div>
</div> <div>No new concerns during this visit. Doing well. </div> Review of Systems Comprehensive Adult Problem ROS Reported By: Patient Constitutional: Constitutional: no significa nt weight change, no fatigue Eyes: Eyes: ; denies vision distur bances Cardiovascular: Cardiovascular: no chest thaddeus n, normal heart rate; no pedal edema Respiratory: Respiratory: no cough, no wh eezing, no chest tightness, normal respiration Gastrointestinal: GI: no abdominal pain, no vo miting, no diarrhea, no constipation Musculoskeletal: Musculoskeletal: no soft tis priscilla swelling, no joint swelling Skin: Skin: no rash Neurological symptoms: Neuro: no numbness, no tingl ing, no headache, no dizziness Psychiatric: Psych: no depression, no anx iety Physical Exam General Adult Exam (Female) Reported By: Patient Constitutional: General Appearance: healthy- appearing, well-developed, obese. Level of Distress: NAD. Ambulation: ambulating normally Psychiatric: Insight: good judgement. Men jose Status: active and alert, normal mood, normal affect. Orientation: to time, to place, to person Eyes: Lids and Conjunctivae: non-i njected, no discharge, no pallor. Pupils: PERRLA. EOM: EOMI. Sclerae: non-icteric ENMT: Ears: EACs clear, TMs clear. Nose: nares patent, nasal passages clear, no sinus tenderness, no nasal discharge. Lips, Teeth, and Gums: no mouth or lip ulcers, no bleeding gums, normal dentition. Oropharynx: moist mucous membranes, no erythema, no exudates, tonsils not enlarged Neck: Neck: supple, no masses, FRO M. Lymph Nodes: no cervical LAD, no supraclavicular LAD. Thyroid: no enlargement, non-tender Lungs: Respiratory effort: no dyspn ea. Auscultation: breath sounds normal, good air movement, no wheezing, no rales/crackles, no rhonchi Cardiovascular: Apical Impulse: not displace d. Heart Auscultation: RRR, no murmurs. Pulses including femoral / pedal: ; normal pedal pulse b/l Abdomen: Bowel Sounds: normal. Inspec tion and Palpation: soft, non-distended, no tenderness, no guarding, no masses. Liver: non-tender, no hepatomegaly. Spleen: non-tender, no splenomegaly Musculoskeletal:: Motor Strength and Tone: nor mal motor strength. Joints, Bones, and Muscles: normal movement of all extremities, no tenderness. Extremities: no cyanosis, no edema, varicosities Neurologic: Gait and Station: normal gai t, normal station Skin: Inspection and palpation: no rash, good turgor
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
[2020-07-06] MEDS ORDERED: SODIUM CHLORIDE 0.9% 50ML 50 ML ONE (14:31)
[2020-07-06] MEDS ORDERED: IOPAMIDOL 370 MG/ML 200 ML INFUS..BTL INJ ONE (14:31)
--- NOTE | 2020-07-06 15:05 | Diagnostic Imaging Report ---
CT of the chest, PE protocol, with contrast. History: Shortness of breath. Comparison: Chest radiograph from earlier 07/06/2020. Technique: Multidetector thin collimation CT scanning of the chest was performed from the level of the apices to the upper abdomen during the pulmonary arterial phase, after intravenous administration of contrast. Coronal and sagittal MIP reformations were obtained. RADIATION DOSE: Total DLP: 433.72 mGy*cm Dose modulation, iterative reconstruction, and/or weight based adjustment of the mA/kV was utilized to reduce the radiation dose to as low as reasonably achievable. FINDINGS: There is adequate opacification of the pulmonary arteries which distribute normally. The main pulmonary artery measures 2.8 cm in maximal diameter. There is no evidence of a filling defect or vessel cut off to suggest pulmonary thromboembolism. The thyroid and remaining visualized structures within the base of the neck demonstrate no significant abnormalities. The thoracic aorta is normal course and caliber. The heart is not enlarged. No abnormal pericardial fluid is present. Multiple normal-sized to mildly prominent mediastinal lymph nodes are noted which are nonspecific and may be reactive. There is no abnormal axillary or hilar lymph node enlargement. The trachea and proximal airways are patent. There are extensive patchy groundglass and consolidative opacities identified involving the bilateral lower lobes, right middle lobe, and left greater than right upper lobes. There is no evidence for pneumothorax or pleural effusion. Limited views of the upper abdomen demonstrate no significant abnormalities. The osseous structures demonstrate no evidence for acute fracture or destructive process. The extrathoracic soft tissues are unremarkable. IMPRESSION: 1. No evidence for pulmonary thromboembolism. 2. Extensive patchy groundglass and consolidative opacities identified throughout the lungs bilaterally concerning for a multifocal/viral infectious process. Signed by: Dr. Narendra Sargent MD on 07/06/2020 3:02 PM
[2020-07-06] MEDS ORDERED: CLARITIN10 MG (15:07)
[2020-07-06] MEDS ORDERED: LASIX20 MG PO (15:07)
[2020-07-06] MEDS ORDERED: XARELTO20 MG (15:07)
[2020-07-06] MEDS ORDERED: APRI1 EACH (15:07)
[2020-07-06] MEDS ORDERED: TESSALON PERLE100 MG (15:07)
== END 2020-07-06 18:57 | disposition other institution (70) ==
LOC: ER 12:43
DX: N93.8 Other specified abnormal uterine and vaginal bleeding (principal); Z86.711 Personal history of pulmonary embolism; Z79.01 Long term (current) use of anticoagulants
CPT/HCPCS: 36415; 71045; 71260; 80053; 82550; 82553; 83605; 84484; 84702; 85025; 86850; 86900; 87040; 99285; Q9967; U0002